=== PATIENT | male | born 1950 | race Caucasian/White ===

== ENCOUNTER 2017-04-26 21:10 | Emergency (ER) | payer SELFPAY ==
[~2017-04-26] VITALS: Ht 172.7 cm; Wt 77.1 kg
[~2017-04-26 21:10] MED LIST: ASPI81TA31 PO; CLON0.5T4 PO; LISI40TA4 PO; PROP10TA10 PO
--- NOTE | 2017-04-26 21:13 | NUR ---
PATIENT WALKED INTO ER WITH STEADY GAIT BY FAMILY MEMBER C/O SLURRED SPEECH,DIFFUCULTY FORMING WORDS AND PERIODS OF CONFUSION SINCE YESTERDAY.UPON ARRIVAL WITH CLEAR SPEECH ,Sayda/UZAIR
--- NOTE | 2017-04-26 21:27 | NUR ---
PATIENT OUT OF UNIT FOR CT SCAN VIA GURNY
[2017-04-26] MEDS ORDERED: HYDROCHLOROTHIAZIDE PO (21:30)
[2017-04-26] MEDS ORDERED: IV NORMAL SALINE 500 ML BAG IV ONE (21:30)
[2017-04-26 21:37] LABS: BASOPHILS % (AUTO) 0.5 % (0.0-2.0); EOSINOPHILS # (AUTO) 0.1 K/uL (0.0-0.7); EOSINOPHILS % (AUTO) 1.2 % (0.0-7.0); HEMATOCRIT 40.8 % (40-50); HEMOGLOBIN 13.5 G/DL (14.0-18.0); LYMPHOCYTES # (AUTO) 2.2 K/UL (0.8-4.8); MEAN CORPUSCULAR HEMOGLOBIN 29.5 UUG (27.0-31.0); MEAN CORPUSCULAR HGB CONC 33 g/dL (32.0-37.0); MEAN CORPUSCULAR VOLUME 89.2 FL (82.0-92.0); MONOCYTES # (AUTO) 0.6 K/UL (0.1-1.30); MONOCYTES % (AUTO) 9.8 % (0.0-11.0); NEUTROPHILS # (AUTO) 3.5 K/UL (1.8-8.9); NEUTROPHILS % (AUTO) 53.5 % (38.5-71.5); PLATELET COUNT (AUTO) 200 K/UL (150-450); RED BLOOD CELL COUNT(AUTO) 4.58 MIL/UL (4.7-6.1); WHITE BLOOD COUNT (AUTO) 6.4 K/UL (4.0-11.2)
--- NOTE | 2017-04-26 21:45 | NUR ---
PATIENT BACK FROM CT SCAN WITH NO DISTRESS NOTED
[2017-04-26 21:46] LABS: CREATININE 1.1 mg/dL (0.6-1.3); POTASSIUM 3.2 mmol/L (3.5-5.1)
[2017-04-26 22:01] LABS: BILIRUBIN,DIRECT 0.1 mg/dL (0.0-0.2); BILIRUBIN,TOTAL 0.3 mg/dL (0.2-1.0); TOTAL PROTEIN, SERUM 7.2 g/dL (6.4-8.2)
--- NOTE | 2017-04-26 22:07 | NUR ---
DR WEBB INTO RE EVAL PATIENT WITH FAMILY MEMBERS AT BEDSIDE
[2017-04-26] MEDS ORDERED: ASPIRIN 325 MG TABLET PO ONE (22:15)
--- NOTE | 2017-04-26 22:19 | NUR ---
IV removed. Catheter intact and site benign. Pressure and 4x4 gauze applied to site. No bleeding noted.
[2017-04-26] MEDS ORDERED: ASPIRIN 325 MG TABLET ONE (22:24)
--- NOTE | 2017-04-26 22:26 | NUR ---
Patient discharged to home in stable conditon WITH FAMILY TAKING PATIENT HOME. Written and verbal after care instructions given. Patient verbalizes understanding of instructions. WALKED OUT OF ER WITH STEADY GAIT
[2017-04-26 22:27] VITALS: BP 148/85
== END 2017-04-26 22:28 | disposition home or self-care (01) ==
LOC: ER 21:12
DX: G45.9 Transient cerebral ischemic attack, unspecified (principal); I10 Essential (primary) hypertension; F41.9 Anxiety disorder, unspecified; Z79.82 Long term (current) use of aspirin
CPT/HCPCS: 36415; 70030-TC; 70450; 71010; 85025; 85730; 93005; A4663; J7040